=== PATIENT | female | born 1995 | race Caucasian/White ===

== ENCOUNTER 2018-02-14 03:52 | Emergency (ER) | payer BC ==
[2018-02-14 06:01] LABS: INR 0.95 (0.77-1.02)
[2018-02-14 06:06] LABS: Urine Appearance Cloudy; Urine Blood Negative (Negative); Urine Color Yellow; Urine Ketones Negative (Negative); Urine Protein Negative (Negative); Urine Urobilinogen Negative (Negative)
[2018-02-14 06:10] LABS: EGFR Non-African American 83.3 (>60)
[2018-02-14 06:17] LABS: ABS Basophils 0.1 10^3/ul (0-0.2); ABS Eosinophils 0 10^3/ul (0-0.6); ABS Lymphocytes 1.8 10^3/ul (1.0-4.8); ABS Monocytes 0.5 10^3/ul (0-0.8); ABS Neutrophils 6.3 10^3/ul (1.5-7.7); ABS Nucleated RBC 0 10^3/ul; Eosinophil % 0.4 % (0-6); Hematocrit 39 % (35-47); Hemoglobin 12.7 g/dl (12.0-16.0); Lymphocyte % 20.7 % (25-47); Mean Corpuscular HGB Conc 32 g/dl (31-36); Mean Corpuscular Hemoglobin 26 pg (27-31); Mean Corpuscular Volume 79 fL (80-97); Mean Platelet Volume 8.5 um3 (7.4-10.4); Nucleated Red Blood Cells % 0; Platelet Count 324 10^3/ul (150-450); Red Blood Count 4.98 10^6/ul (4.0-5.4); Red Cell Distribution Width 15 % (10.5-15); White Blood Count 8.7 10^3/ul (3.5-10.8)
--- NOTE | 2018-02-14 08:20 | RAD ---
INDICATION: Abdominal pain COMPARISON: None TECHNIQUE: Longitudinal and transverse scans of the right upper quadrant were obtained. Doppler interrogation of the hepatic and portal venous system was performed. FINDINGS: Liver: The liver is normal in size and echogenicity. There are no focal masses. The liver measures 15.5 cm in cephalocaudal dimension. Vessels: There is normal hepatic and portal venous flow. Bile ducts: There is no evidence of intrahepatic or extrahepatic ductal dilatation. The common duct measures 0.2 cm. Gallbladder: The sonographic appearance of the gallbladder is normal. There is no evidence of cholelithiasis, thickening of the gallbladder wall, or pericholecystic fluid. Pancreas: The visualized pancreas appears normal Right kidney: The right kidney is normal in size and echogenicity. There are no masses or calculi. There is no evidence of hydronephrosis. The right kidney measures 10.7 x 4.5 x 5.2 cm. IVC and aorta: The aorta and superior vena cava appear normal. Fluid: There is no ascites. Other: None. IMPRESSION: NORMAL STUDY.
[2018-02-14 09:01] VITALS: BP 130/76
[2018-02-14] MEDS ORDERED: Lidocaine 2% VISCOUS* 15 ML UDC PO ONE (09:01)
[2018-02-14] MEDS ORDERED: Al Hydrox/Mg Hydrox/Simet LIQ* 30 ML UDC PO ONE (09:01)
--- NOTE | 2018-02-14 18:34 | ED ---
Tamara Rhodes Julia, scribed for Ari Baxter MD on 02/14/18 at 0736 . Progress - Progress Note Progress Note: Pt is signed out from Dr. Carias at shift change, awaiting gallbladder US. - Results/Orders Results/Orders: A Gallbladder US reveals, as per radiologist, NORMAL STUDY. Dr. Baxter has reviewed this report. Re-Evaluation - Re-Evaluation 1 Re-Evaluation Time: 08:58 Comment: Pt is having epigastric pain. Pt will be given a GI cocktail. Course/Dx - Course Course Of Treatment: Pt is signed out from Dr. Carias at shift change awaiting gallbladder US. Upon re-evaluation pt reports epigastric pain that radiates into the chest. Pt is given a GI cocktail. US was unremarkable. A Troponin was ordered and was negative. Pt feels better in ED. Pt is sent home with Protonix and is instructed to follow up with her PCP and GI doctor. - Diagnoses Provider Diagnoses: GERD (gastroesophageal reflux disease) Discharge - Sign-Out/Discharge Documenting (check all that apply): Discharge/Admit/Transfer, Receiving Sign-Out Receiving patient FROM: Radhames Carias - Discharge Plan Condition: Stable Disposition: HOME Prescriptions: Pantoprazole TAB (NF) [Protonix TAB (NF)] 20 mg PO DAILY #30 tab Patient Education Materials: Chest Pain (ED), Gastroesophageal Reflux Disease ( ED), Abdominal Pain (ED) Referrals: [facility] [Outside] (Please find a primary care physician.) Erick Tsai MD [Medical Doctor] - 1 Week (Follow up with a hoop cutter regarding your symptoms today) The documentation as recorded by the Tamara aquino Julia accurately reflects the service I personally performed and the decisions made by me, Ari Baxter MD.
--- NOTE | 2018-03-03 05:13 | ED ---
Jagdish Rhodes Angela, scribed for Radhames Carias MD on 02/14/18 at 0417 . Abdominal Pain/Female - HPI Summary HPI Summary: This pt is a 22 y/o female presenting to [facility] c/o intermittent abdominal pain radiating up to her mid sternal chest for approximately a couple of weeks. She describes her pain like indigestion. Pt states with this abdominal pain she has nausea. Pt reports her pain seems to be worse after eating or drinking, even coffee. She notes she went to a walk-in 3 days ago and had an EKG that was normal. Her heart rate was 150 but she didn't have any tests done, she was recommended to go to the ED. Pt denies constipation, diarrhea. Pt reports she ate a burger and fries for dinner last night and today at 01:00 she started not to feel well. She is currently on control pills and is a current smoker. - History of Current Complaint Chief Complaint: EDAbdPain Stated Complaint: ABDOMINAL PAIN Time Seen by Provider: 02/14/18 04:06 Hx Obtained From: Patient Onset/Duration: Lasting Weeks, Still Present Timing: Weeks Severity Currently: Mild Pain Intensity: 3 Pain Scale Used: 0-10 Numeric Location: Epigastric Radiates: Yes Radiates to: Chest Aggravating Factor(s): Food Alleviating Factor(s): Nothing Associated Signs and Symptoms: Positive: Nausea. Negative: Constipation, Vomiting, Diarrhea Allergies/Adverse Reactions: Allergies Allergy/AdvReac Type Severity Reaction Status Date / Time Penicillins Allergy Rash Verified 02/14/18 04:01 PMH/Surg Hx/FS Hx/Imm Hx Endocrine/Hematology History: Denies: Hx Diabetes Cardiovascular History: Denies: Hx Hypertension - Surgical History Surgery Procedure, Year, and Place: Tonsillectomy Infectious Disease History: No Infectious Disease History: Denies: Traveled Outside the [place] in Last 30 Days - Family History Known Family History: Negative: Cardiac Disease - Social History Alcohol Use: None Substance Use Type: Reports: None Smoking Status (MU): Light Every Day Tobacco Smoker Review of Systems Negative: Fever Eyes: Negative ENT: Negative Positive: Abdominal Pain, Nausea. Negative: Vomiting, Diarrhea, Other - constipation Musculoskeletal: Negative Skin: Negative Neurological: Negative All Other Systems Reviewed And Are Negative: Yes Physical Exam - Summary Physical Exam Summary: VITAL SIGNS: Reviewed. GENERAL: Patient is a well-developed and nourished female who is lying comfortable in the stretcher. Patient is not in any acute respiratory distress. HEAD AND FACE: No signs of trauma. No ecchymosis, hematomas or skull depressions. No sinus tenderness. EYES: PERRLA, EOMI x 2, No injected conjunctiva, no nystagmus. EARS: Hearing grossly intact. Ear canals and tympanic membranes are within normal limits. MOUTH: Oropharynx within normal limits. NECK: Supple, trachea is midline, no adenopathy, no JVD, no carotid bruit, no c- spine tenderness, neck with full ROM. CHEST: Symmetric, no tenderness at palpation LUNGS: Clear to auscultation bilaterally. No wheezing or crackles. CVS: Regular rate and rhythm, S1 and S2 present, no murmurs or gallops appreciated. ABDOMEN: Soft, right upper quadrant tenderness. No signs of distention. No rebound no guarding, and no masses palpated. Bowel sounds are normal. EXTREMITIES: FROM in all major joints, no edema, no cyanosis or clubbing. NEURO: Alert and oriented x 3. No acute neurological deficits. Speech is normal and follows commands. SKIN: Dry and warm Triage Information Reviewed: Yes Vital Signs On Initial Exam: Initial Vitals Temp Pulse Resp BP Pulse Ox 97.8 F 101 18 119/84 100 02/14/18 03:57 02/14/18 03:57 02/14/18 03:57 02/14/18 03:57 02/14/18 03:57 Vital Signs Reviewed: Yes Diagnostics - Vital Signs Vital Signs Temp Pulse Resp BP Pulse Ox 02/14/18 03:57 97.8 F 101 18 119/84 100 - Laboratory Result Diagrams: 02/14/18 05:32 02/14/18 05:33 Lab Statement: Any lab studies that have been ordered have been reviewed, and results considered in the medical decision making process. - EKG 04:34 Cardiac Rate: NL - at 90 bpm EKG Rhythm: Sinus Rhythm EKG Interpretation: Normal axis. Normal interval. No ischemic changes Abdominal Pain Fem Course/Dx - Course Course Of Treatment: pt is a 22 y/o female presenting to [facility] c/o intermittent abdominal pain radiating up to her mid sternal chest for approximately a couple of weeks. She describes her pain like indigestion. Pt states with this abdominal pain she has nausea. Pt reports her pain seems to be worse after eating or drinking, even coffee. She notes she went to a walk-in 3 days ago and had an EKG that was normal. Her heart rate was 150 but she didn't have any tests done, she was recommended to go to the ED. Pt denies constipation, diarrhea. Test results without any significant abnormalities except for CRP of 19.48. Gallbladder US is still pending. Therefore pt will be signed out to Dr. Baxter, pending disposition, awaiting gallbladder US. - Diagnoses Provider Diagnoses: RUQ abdominal pain Discharge - Sign-Out/Discharge Documenting (check all that apply): Sign-Out Patient Signing out patient TO: Ari Baxter - Discharge Plan Condition: Stable Discharge Disposition Comment: pt signed out to Dr. Baxter, pending dispo, awaiting US gallbladder The documentation as recorded by the Jagdish aquino Angela accurately reflects the service I personally performed and the decisions made by me, Radhames Carias MD.
== END 2018-02-14 09:20 | disposition home or self-care (01) ==
LOC: ED 03:52
DX: K21.9 Gastro-esophageal reflux disease without esophagitis (principal); R07.89 Other chest pain; F17.200 Nicotine dependence, unspecified, uncomplicated; Z88.0 Allergy status to penicillin
CPT/HCPCS: 36415; 76705; 80053; 81003; 81015; 83690; 84484; 84702; 85025; 85379; 85610; 85730; 86140; 87086; 93005; 99282; A9270-GY

== ENCOUNTER 2019-08-15 02:14 | Emergency (ER) | payer BC ==
[2019-08-15] MEDS ORDERED: NS 0.9% 1000 ML** 1,000 ML IV.FLUID IV ONE (02:21)
[2019-08-15] MEDS ORDERED: Acetaminophen TAB* 325 MG PO ONE (02:25)
--- NOTE | 2019-08-15 02:31 | ED ---
Influenza-Like Illness - HPI Summary HPI Summary: 23 year old F presenting to [facility] complains of worsening sore throat since Monday 08/13, and worsening headache located in temples and posterior head, ear ache, fever, chills, diaphoresis, nasal congestion, since Tuesday 08/14. No cough. No sinus pressure. The patient rates the pain 2/10 in severity. Symptoms aggravated by nothing. Symptoms alleviated by cold medications. - History of Current Complaint Chief Complaint: EDFluSymptoms Hx Obtained From: Patient Onset/Duration: Lasting Days - 3, Still Present Severity: Mild - Allergy/Home Medications Allergies/Adverse Reactions: Allergies Allergy/AdvReac Type Severity Reaction Status Date / Time Penicillins Allergy Rash Verified 08/15/19 02:19 PMH/Surg Hx/FS Hx/Imm Hx Endocrine/Hematology History: Denies: Hx Diabetes Cardiovascular History: Denies: Hx Hypertension - Surgical History Surgery Procedure, Year, and Place: Tonsillectomy Infectious Disease History: No Infectious Disease History: Denies: Traveled Outside the [place] in Last 30 Days - Family History Known Family History: Negative: Cardiac Disease - Social History Alcohol Use: None Substance Use Type: Reports: None Hx Tobacco Use: Yes Smoking Status (MU): Light Every Day Tobacco Smoker Review of Systems Positive: Fever, Chills, Skin Diaphoresis ENT: Negative - sinus pressure Positive: Sore Throat, Ear Ache, Other - nasal congestion Negative: Cough Positive: Headache All Other Systems Reviewed And Are Negative: Yes Physical Exam - Summary Physical Exam Summary: Appearance: non-toxic appearing young woman lying in bed comfortably, noted to be febrile and tachycardic Skin: Warm, dry, no obvious rash Eyes: sclera anicteric, no conjunctival pallor ENT: mucous membranes moist, pharynx has some purulent exudate on both sides, more so on the right Neck: Supple, nontender Respiratory: Clear to auscultation, no signs of respiratory distress Cardiovascular: Normal S1, S2. No murmurs. Normal distal pulses in tibial and radial bilaterally. Abdomen: Soft, nontender, normal active bowel sounds present Musculoskeletal: Normal, Strength/ROM Intact Neurological: A&Ox3, awake and alert, mentation is normal, speech is fluent and appropriate Psychiatric: affect is normal, does not appear anxious or depressed Triage Information Reviewed: Yes Vital Signs On Initial Exam: Initial Vitals Temp Pulse Resp BP Pulse Ox 101.6 F 132 32 134/83 100 08/15/19 02:16 08/15/19 02:16 08/15/19 02:16 08/15/19 02:16 08/15/19 02:16 Vital Signs Reviewed: Yes Procedures - Sedation Patient Received Moderate/Deep Sedation with Procedure: No Diagnostics - Vital Signs Vital Signs Temp Pulse Resp BP Pulse Ox 08/15/19 02:16 101.6 F 132 32 134/83 100 - Laboratory Result Diagrams: 08/15/19 02:43 08/15/19 02:43 Lab Statement: Any lab studies that have been ordered have been reviewed, and results considered in the medical decision making process. - Radiology CXR Radiology Interpretation Completed By: ED Physician Summary of Radiographic Findings: No acute process. Pending official report. Re-Evaluation - Re-Evaluation First Eval Re-Evaluation Time: 03:45 Comment: agrees to d/c Flu Symptom Course/Dx - Course Course Of Treatment: 23 year old F complains of worsening sore throat since Monday 08/13, and worsening headache located in temples and posterior head, ear ache, fever, chills, diaphoresis, nasal congestion, since Tuesday 08/14. Upon exam, the patient is a non-toxic appearing young woman who is noted to be febrile and tachycardic. Her pharynx has some purulent exudate on both sides, more so on the right. Bloodwork results with no significant abnormalities except for WBC 13.0, RBC 5.16, MCH 26, absolute neuts 10.3, absolute monos 1.3, INR 1.24, sodium 134, potassium 3.2, glucose 106. Rapid flu tests negative for Influenza A and B. Strep test negative. CXR shows no acute process. Patient will be discharged home with prescription for cefdinir 300 mg PO BID and follow up from [facility] in 5 days. Patient was instructed to return to Emergency Department for new or worsening symptoms. Patient understands and is agreeable to this plan. - Diagnoses Provider Diagnoses: Fever, Pharyngitis Discharge ED - Sign-Out/Discharge Documenting (check all that apply): Patient Departure - Discharge - Discharge Plan Condition: Good Disposition: HOME Prescriptions: Cefdinir cap* [Cefdinir 300 MG cap (NF)] 300 mg PO BID #20 cap Patient Education Materials: Pharyngitis (ED) Forms: *Work Release Referrals: [facility] [Outside] - 5 Days (if no better) - Billing Disposition and Condition Condition: GOOD Disposition: Home - Attestation Statements Document Initiated by Carrol: Yes Documenting Scribe: Sultana Gatica Provider For Whom Carrol is Documenting (Include Credential): Enrique Dewitt MD Scribe Attestation: Sultana Rhodes scribed for Enrique Dewitt MD on 08/15/19 at 0516. Scribe Documentation Reviewed: Yes Provider Attestation: The documentation as recorded by the Sultana aquino accurately reflects the service I personally performed and the decisions made by me, Enrique Dewitt MD Status of Scribe Document: Viewed
[2019-08-15 02:44] LABS: Influenza A Molecular NEGATIVE (Negative); Influenza B Molecular NEGATIVE (Negative)
[2019-08-15 02:51] LABS: ABS Basophils 0.1 10^3/ul (0-0.2); ABS Lymphocytes 1.3 10^3/ul (1.0-4.8); ABS Monocytes 1.3 10^3/ul (0-0.8); ABS Neutrophils 10.3 10^3/ul (1.5-7.7); Hematocrit 41 % (35-47); Hemoglobin 13.5 g/dL (12.0-16.0); Mean Corpuscular HGB Conc 33 g/dL (31-36); Mean Corpuscular Hemoglobin 26 pg (27-31); Mean Corpuscular Volume 80 fL (80-97); Mean Platelet Volume 8.4 fL (7.4-10.4); Nucleated Red Blood Cells % 0.1; Platelet Count 327 10^3/uL (150-450); Red Blood Count 5.16 10^6 /uL (3.70-4.87); Red Cell Distribution Width 15 % (10-15)
[2019-08-15 02:52] LABS: Rapid Strep Molecular Negative (Negative)
[2019-08-15 02:59] LABS: Activated Partial Thrombo Time 34.6 seconds (26.0-38.0); INR 1.24 (0.82-1.09)
[2019-08-15 03:08] LABS: Albumin 4.2 g/dL (3.2-5.2); Albumin/Globulin Ratio 1.2 (1-3); Calcium 9.3 mg/dL (8.6-10.3); EGFR African American 93.5 (>60); EGFR Non-African American 77.3 (>60); Globulin 3.6 g/dL (2-4); Potassium 3.2 mmol/L (3.5-5.0); Total Bilirubin 0.4 mg/dL (0.2-1.0); Total Protein 7.8 g/dL (6.4-8.9)
[2019-08-15 03:35] VITALS: BP 131/91
[2019-08-15] MEDS ORDERED: Cefdinir cap* 300 MG CAP PO ONE (04:00)
== END 2019-08-15 03:51 | disposition home or self-care (01) ==
LOC: ED 02:14
DX: J02.9 Acute pharyngitis, unspecified (principal); F17.200 Nicotine dependence, unspecified, uncomplicated; Z88.0 Allergy status to penicillin
CPT/HCPCS: 36415; 71046; 80053; 83605; 84484; 85025; 85610; 85730; 87040; 87651; 99283; A9270-GY

== ENCOUNTER 2019-12-16 06:58 | Emergency (ER) | payer BC ==
[2019-12-16 07:09] VITALS: BP 136/78
[2019-12-16] MEDS ORDERED: Ibuprofen TAB* 600 MG PO ONE (07:10)
[2019-12-16] MEDS ORDERED: Acetaminophen TAB* 325 MG PO ONE (07:50)
[2019-12-16 08:00] LABS: Influenza A Molecular POSITIVE (Negative)
[2019-12-16] MEDS ORDERED: Oseltamivir CAP* 75 MG CAP PO ONE (08:10)
--- NOTE | 2019-12-16 09:01 | ED ---
Influenza-Like Illness - HPI Summary HPI Summary: This patient is a 24-year-old female who presents to the ED with fever, chills, bodyaches, sweats, cough and congestion since in the middle the night. Patient states she does endorse sick contacts. Flu vaccination is up-to-date. Patient is otherwise healthy. Nonsmoker. She states she took 250 mg Tylenol approximate 4 hours ago. She is not taken any other medications since that time. Denies any sore throat, abdominal pain, nausea or vomiting. - History of Current Complaint Chief Complaint: EDFluSymptoms Time Seen by Provider: 12/16/19 07:06 Hx Obtained From: Patient Onset/Duration: Sudden Onset Severity: Mild Associated Signs & Symptoms: Fever, T Max, F/C, Myalgia, Cough, Nasal Congestion Related Hx: Possible Flu/Infectious Exposure - Risk Factors Influenza Risk Factors: Negative - Allergy/Home Medications Allergies/Adverse Reactions: Allergies Allergy/AdvReac Type Severity Reaction Status Date / Time Penicillins Allergy Rash Verified 12/16/19 07:02 Home Medications: Home Medications Norethindrone-E.estradiol-Iron [Tri-Legest Fe] 1 tab PO DAILY 02/14/18 [History Confirmed 12/16/19] PMH/Surg Hx/FS Hx/Imm Hx Previously Healthy: Yes Endocrine/Hematology History: Denies: Hx Diabetes Cardiovascular History: Denies: Hx Hypertension - Surgical History Surgery Procedure, Year, and Place: Tonsillectomy - Immunization History Date of Tetanus Vaccine: unk Date of Influenza Vaccine: 07/12/19 Hx Pertussis Vaccination: No Immunizations Up to Date: Yes Infectious Disease History: No Infectious Disease History: Denies: Traveled Outside the [place] in Last 30 Days - Family History Known Family History: Negative: Cardiac Disease - Social History Occupation: Employed Full-time Lives: With Family Alcohol Use: None Hx Substance Use: No Substance Use Type: Reports: None Hx Tobacco Use: Yes Smoking Status (MU): Former Smoker Review of Systems Positive: Fever, Chills, Fatigue, Skin Diaphoresis Negative: Blurred Vision, Diplopia Negative: Palpitations, Chest Pain Positive: Cough. Negative: Shortness Of Breath Negative: Abdominal Pain, Vomiting, Diarrhea, Nausea Positive: Myalgia. Negative: Arthralgia Skin: Negative Neurological/Mental Status: Negative All Other Systems Reviewed And Are Negative: Yes Physical Exam Triage Information Reviewed: Yes Vital Signs On Initial Exam: Initial Vitals Temp Pulse Resp BP Pulse Ox 102.3 F 143 17 136/78 99 12/16/19 07:01 12/16/19 07:01 12/16/19 07:01 12/16/19 07:01 12/16/19 07:01 Vital Signs Reviewed: Yes Appearance: Positive: Well-Appearing, Well-Nourished Skin: Positive: Skin Color Reflects Adequate Perfusion Head/Face: Positive: Normal Head/Face Inspection Eyes: Positive: EOMI, Conjunctiva Clear Neck: Positive: No Lymphadenopathy Respiratory/Lung Sounds: Positive: Clear to Auscultation, Breath Sounds Present Cardiovascular: Positive: RRR, Pulses are Symmetrical in both Upper and Lower Extremities Musculoskeletal: Positive: Normal, Strength/ROM Intact Psychiatric: Positive: Affect/Mood Appropriate Procedures - Sedation Patient Received Moderate/Deep Sedation with Procedure: No Diagnostics - Vital Signs Vital Signs Temp Pulse Resp BP Pulse Ox 12/16/19 08:37 98.6 F 115 18 136/78 95 12/16/19 08:08 101.0 F 122 12/16/19 07:52 101.4 F 127 12/16/19 07:01 102.3 F 143 17 136/78 99 - Laboratory Lab Results: Lab Results 12/16/19 Range/Units 07:11 Influenza A (Rapid) Positive H (Negative) Influenza B (Rapid) Not Reportable Lab Statement: Any lab studies that have been ordered have been reviewed, and results considered in the medical decision making process. Flu Symptom Course/Dx - Course Course Of Treatment: Patient is assessed for influenza-like illness. Patient arrives with febrile illness and tachycardia. Temperature of 102.3 and tachycardic at 143. She is given a dose of ibuprofen. Lungs CTA, RRR. No pharyngeal erythema or LAD. Patient is given tamiflu. RX sent. - Diagnoses Differential Diagnosis/HQI/PQRI: Positive: Bronchitis, Influenza, Upper Respiratory Infection Provider Diagnoses: Influenza A Discharge ED - Sign-Out/Discharge Documenting (check all that apply): Patient Departure - Discharge Plan Condition: Stable Disposition: HOME Patient Education Materials: Influenza (ED) Forms: *Work Release Referrals: No Primary Care Phys,NOPCP [Primary Care Provider] - Additional Instructions: Tamiflu twice daily x 5 days - next dose is this evening Over the counter cough medication, tylenol and ibuprofen Take 650mg tylenol four times daily Sleep Drink plenty of fluids May return to work next week - Billing Disposition and Condition Condition: STABLE Disposition: Home
== END 2019-12-16 08:37 | disposition home or self-care (01) ==
LOC: ED 06:58
DX: J10.1 Influenza due to other identified influenza virus with other respiratory manifestations (principal); Z87.891 Personal history of nicotine dependence
CPT/HCPCS: 99283; A9270-GY